=== PATIENT | male | born 1950 | race Caucasian/White ===

== ENCOUNTER 2016-06-18 15:36 | Emergency (ER) | payer BC ==
[2016-06-18 16:23] VITALS: TEMP 98.5; O2SAT 96
[2016-06-18] MEDS ORDERED: KETOROLAC TROMETHAMINE INJ 30 MG/ML VIAL IM ONE (17:12)
[2016-06-18 19:05] VITALS: BP 141/95
--- NOTE | 2016-06-18 19:13 | CT ---
EXAM DESCRIPTION: CT ABDOMEN PELVIS WITHOUT IV CONTRAST CLINICAL HISTORY: 65 y/o [place] abdominal pain, hematuria COMPARISON: None. TECHNIQUE: Contiguous axial images were obtained through the abdomen and pelvis without IV or oral contrast. Reformatted images were obtained. FINDINGS: The lung bases are clear. Moderate to large hiatal hernia. The unenhanced liver, spleen, pancreas and adrenal glands appear unremarkable. There is mild left hydronephrosis and hydroureter. There is a calculus at the distal aspect of the left ureter measuring approximately 0.35 cm in diameter. There are likely 2 punctate calculi in the distal ureter slightly above the 0.35 cm calculus. There is a tiny nonobstructing left renal calculus. Changes from previous cholecystectomy. Mild atherosclerotic calcifications. No aneurysmal dilatation of the aorta. No bowel obstruction. Changes from colonic diverticulosis. The appendix appears unremarkable. No free pelvic fluid. There appear to be changes from previous anterior abdominal wall hernia repair. Degenerative changes in the spine. There is severe left L5-S1 neural foraminal stenosis. IMPRESSION: Left hydronephrosis with several small calculi visualized in the left lower ureter. The largest calculus measures 0.35 cm in diameter. Nonobstructing left renal calculus. Moderate to large hiatal hernia. Colonic diverticulosis without diverticulitis. Degenerative changes in the spine with severe left L5-S1 neural foraminal stenosis. Electronically signed by: Javed Allen MD 06/18/2016 19:11
--- NOTE | 2016-06-18 19:45 | ED.PDOC ---
History of Present Illness - General Chief Complaint: Problem Stated Complaint: left side low back pain Time Seen by Provider: 06/18/16 16:38 Source: patient, RN notes reviewed, Vital Signs reviewed Exam Limitations: no limitations - History of Present Illness Initial Comments: Patient is a 65 y/o male with a history of urolithiasis who has been having pain in his left flank since 1430. The pain radiates into the left pelvis. He denies any nausea or vomiting. No dysuria. Timing/Duration: 4-6 hours Severity: severe Improving Factors: nothing Worsening Factors: nothing Associated Symptoms: denies symptoms Allergies/Adverse Reactions: Allergies NO KNOWN ALLERGY Allergy (Verified 06/18/16 16:23) Home Medications: Ambulatory Orders Amlodipine Besylate 10 mg PO DAILY 04/01/13 Celecoxib [Celebrex] 200 mg PO DAILY 04/01/13 Omeprazole 20 mg PO DAILY 04/01/13 Vitamin E [Vitamin E 400] 400 iu PO DAILY 04/01/13 Ketorolac Tromethamine [Toradol Tabs] 10 mg PO Q6H PRN #20 tab 06/18/16 Tamsulosin HCl [Flomax] 0.4 mg PO DAILY PRN #10 cap 06/18/16 Review of Systems - Review of Systems Constitutional: States: no symptoms reported EENTM: States: no symptoms reported Respiratory: States: no symptoms reported Cardiology: States: no symptoms reported Genitourinary: States: pain - Left flank Musculoskeletal: States: no symptoms reported Skin: States: no symptoms reported Neurological: States: no symptoms reported Endocrine: States: no symptoms reported Hematologic/Lymphatic: States: no symptoms reported All other Systems: Reviewed and Negative Past Medical History (General) - Patient Medical History Hx Congestive Heart Failure: No Hx Hypertension: Yes Hx Diabetes: No - Vaccination History Hx Tetanus, Diphtheria Vaccination: No Hx Influenza Vaccination: Yes Hx Pneumococcal Vaccination: No - Social History Hx Tobacco Use: No Hx Alcohol Use: No Hx Substance Use: No Hx Substance Use Treatment: No Hx Depression: No - Activities of Daily Living Hospice Agency (if applicable):: None - Female History Patient is a Female of Child Bearing Age (10 -59 yrs old): No Patient : No Family Medical History - Family History Mother Family History: Unknown Physical Exam - Physical Exam General Appearance: Alert, Anxious, Obvious distress Ears, Nose, Throat: hearing grossly normal Respiratory: lungs clear, normal breath sounds, no respiratory distress, no accessory muscle use Cardiovascular/Chest: regular rate, rhythm, no edema, no gallop, no murmur Gastrointestinal/Abdominal: normal bowel sounds, non tender, soft, no organomegaly Back Exam: normal inspection, no CVA tenderness Extremity: normal range of motion Neurologic: alert, normal mood/affect, oriented x 3 Skin Exam: normal color, warm/dry Progress - Results/Orders Results/Orders: 06/18/16 06/18/16 16:15 19:04 Temperature 98.5 F Pulse Rate [ 86 86 pulse ox] Respiratory 20 16 Rate Blood Pressure 144/99 141/95 [pulse ox] O2 Sat by Pulse 96 Oximetry Laboratory Results Urine Color Yellow (Yellow) 06/18/16 16:24 Urine Appearance Clear (Clear) 06/18/16 16:24 Urine pH 6.0 (4.5-7.8) 06/18/16 16:24 Ur Specific [place] 1.015 (1.005-1.030) 06/18/16 16:24 Urine Protein Negative mg/dL 06/18/16 16:24 Urine Glucose (UA) Negative mg/dL (Negative) 06/18/16 16:24 Urine Ketones Negative mg/dL (NEGATIVE) 06/18/16 16:24 Urine Blood Large (Negative) H 06/18/16 16:24 Urine Nitrite Negative 06/18/16 16:24 Urine Bilirubin Negative (NEGATIVE) 06/18/16 16:24 Urine Urobilinogen 0.2 mg/dL (0.2-1.0) 06/18/16 16:24 Ur Leukocyte Esterase Negative (Negative) 06/18/16 16:24 Urine RBC 10-20 /hpf H 06/18/16 16:24 Urine WBC 0 /hpf 06/18/16 16:24 Ur Epithelial Cells 0 /hpf 06/18/16 16:24 Urine Bacteria 0 06/18/16 16:24 - EKG/XRAY/CT CT Ordered: Yes - 3.5 mm nonobstructing stones distal left ureter CT Interpretation Call Back: No - Report sent CT Interpretation Call Back Date: 06/18/16 CT Interpretation Call Back Time: 19:15 Departure - Departure Clinical Impression: Urolithiasis Qualifiers: Urinary calculus location: ureter Qualifier Code: (N20.1) Calculus of ureter Time of Disposition: 19:51 Disposition: Discharge to Home or Self Care Condition: Excellent Departure Forms: ED Discharge - Pt. Copy, Patient Portal Self Enrollment Instructions: Kidney Stones -- Adult, DI for Kidney Stones Diet: resume usual diet Prescriptions: Tamsulosin HCl [Flomax] 0.4 mg PO DAILY PRN #10 cap PRN Reason: Abdominal Cramping Ketorolac Tromethamine [Toradol Tabs] 10 mg PO Q6H PRN #20 tab PRN Reason: Pain Home Medications: Ambulatory Orders Amlodipine Besylate 10 mg PO DAILY 04/01/13 Celecoxib [Celebrex] 200 mg PO DAILY 04/01/13 Omeprazole 20 mg PO DAILY 04/01/13 Vitamin E [Vitamin E 400] 400 iu PO DAILY 04/01/13 Ketorolac Tromethamine [Toradol Tabs] 10 mg PO Q6H PRN #20 tab 06/18/16 Tamsulosin HCl [Flomax] 0.4 mg PO DAILY PRN #10 cap 06/18/16 Additional Instructions: Follow up in ED or with PCP if symptoms persist or worsen.
== END 2016-06-18 20:06 | disposition home or self-care (01) ==
LOC: ER 15:36
DX: N20.1 Calculus of ureter (principal); I10 Essential (primary) hypertension; Z79.899 Other long term (current) drug therapy
CPT/HCPCS: 74176; 81001; J1885

== ENCOUNTER → 2019-01-02 | Outpatient (CLI) | payer MEDICARE, OTHER | LOC: GMAL 10:19 | PROVIDERS: ATTEND Family Medicine | DX: E53.8 Deficiency of other specified B group vitamins (principal); R53.83 Other fatigue; I10 Essential (primary) hypertension; E55.9 Vitamin D deficiency, unspecified; Z12.5 Encounter for screening for malignant neoplasm of prostate; Z79.899 Other long term (current) drug therapy | CPT/HCPCS: 82306; 82607; 84439; 84443; G0103 ==

== ENCOUNTER → 2019-01-23 | Outpatient (CLI) | payer MEDICARE, OTHER | LOC: GMAL 10:42 | PROVIDERS: ATTEND Family Medicine | DX: R97.20 Elevated prostate specific antigen [PSA] (principal); R73.01 Impaired fasting glucose; R94.5 Abnormal results of liver function studies; I10 Essential (primary) hypertension ==

== ENCOUNTER → 2019-05-01 | Outpatient (CLI) | payer MEDICARE, OTHER | LOC: GMAL 14:04 | PROVIDERS: ATTEND Family Medicine | DX: R97.20 Elevated prostate specific antigen [PSA] (principal); R94.5 Abnormal results of liver function studies; E11.9 Type 2 diabetes mellitus without complications; Z79.899 Other long term (current) drug therapy ==

== ENCOUNTER → 2019-10-28 | Outpatient (CLI) | payer MEDICARE, OTHER | LOC: GMAL 10:41 | PROVIDERS: ATTEND Family Medicine | DX: E53.8 Deficiency of other specified B group vitamins (principal); R53.83 Other fatigue; E55.9 Vitamin D deficiency, unspecified; R97.20 Elevated prostate specific antigen [PSA]; Z79.899 Other long term (current) drug therapy; E11.9 Type 2 diabetes mellitus without complications; I10 Essential (primary) hypertension ==

== ENCOUNTER 2019-12-29 11:14 | Emergency (ER) | payer MEDICARE, OTHER ==
[2019-12-29] MEDS ORDERED: SULFA/TRIMETH 800/160 (DS) TAB 1 EA TAB PO ONE (11:56)
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
[2019-12-29] MEDS ORDERED: NEOMYCIN-BACITRACIN-POLYMYXIN 0.9 GM UD TOP ONE (12:51)
[2019-12-29 13:33] VITALS: BP 134/89; TEMP 96.5; O2SAT 99
== END 2019-12-29 13:10 | disposition home or self-care (01) ==
LOC: ER 11:14
DX: S01.21XA Laceration without foreign body of nose, initial encounter (principal); V86.99XA Unspecified occupant of other special all-terrain or other off-road motor vehicle injured in nontraffic accident, initial encounter; Y92.9 Unspecified place or not applicable

== ENCOUNTER → 2020-04-30 | Outpatient (CLI) | payer MEDICARE, OTHER | LOC: GMAL 10:26 | PROVIDERS: ATTEND Family Medicine | DX: E53.8 Deficiency of other specified B group vitamins (principal); E55.9 Vitamin D deficiency, unspecified; Z79.899 Other long term (current) drug therapy; R97.20 Elevated prostate specific antigen [PSA] ==